=== PATIENT | female | born 1965 | race Caucasian/White ===

== ENCOUNTER 2023-05-20 18:42 | Emergency (ER) | payer MEDICAID, SELFPAY ==
[2023-05-20 19:01] VITALS: BP 119/60; PULSE 86; RESP 16; TEMP 37.2; O2SAT 96; BMI 27.3
--- NOTE | 2023-05-20 19:19 | XRR_ITS ---
PROCEDURE INFORMATION: Exam: XR Chest Exam date and time: 05/20/2023 7:34 PM Age: 57 years old Clinical indication: Pain; Chest pressure; Additional info: Chest pain TECHNIQUE: Imaging protocol: Radiologic exam of the chest. Views: 1 view. COMPARISON: No relevant prior studies available. FINDINGS: Lungs: Left lower lobe atelectasis versus minimal infiltrate. Pleural spaces: Unremarkable. No pleural effusion. No pneumothorax. Heart/Mediastinum: Unremarkable. No cardiomegaly. Bones/joints: Unremarkable. XR/XR chest 1V portable [id number] IMPRESSION: Left lower lobe atelectasis versus minimal infiltrate.
--- NOTE | 2023-05-20 19:19 | ECG_ITS ---
[facility] Test Date: 2023-05-20 Pat Name: Ivis Denney Department: Room: Gender: Female Weigher Operator: : 1965 Requested By: Delvis Mercado Order Number: [id number] Kristen MD: Rica Weir M.D. Measurements Intervals [place] Rate: 84 P: 76 AR: 142 QRS: 65 QRSD: 84 T: 60 QT: 360 QTc: 427 Interpretive Statements SINUS RHYTHM No previous ECG available for comparison Electronically Signed On 05-20-2023 22:46:58 CDT by Rica Weir M.D. [id number]
[2023-05-20 19:20] VITALS: BP 145/88; PULSE 83; RESP 26; O2SAT 97
--- NOTE | 2023-05-20 19:21 | ED_ITS ---
HPI - Chest Pain General: Chief Complaint: Chest Pain Stated Complaint: cp Time Seen by Provider: 05/20/23 19:18 History of Present Illness: 57-year-old female presents emergency department complaints of epigastric/low center chest pressure. She states she was seen at the hospital this morning in [place] and provided cardiac examination at that time it was negative. She did receive a GI cocktail and Zofran and stated she was better this morning she was discharged she currently has antiemetic prescribed Zofran as well as Carafate. She states she has continued to have pressure since she left [facility] this morning. Associated symptoms: Reports abdominal pain and nausea Review of Systems 2 General: Reports: 10 or more systems reviewed and unremarkable except in HPI and below Card: Reports: chest pain GI: Reports: abdominal pain, nausea and heartburn Physical Exam Const: COMMON NORMALS: no acute distress, patient oriented x3 and alert HENMT: COMMON NORMALS: normocephalic, atraumatic, Normal nasal mucous membranes and turbinates present and moist oral mucous membranes HEAD & SCALP: normocephalic and atraumatic NOSE: Normal nasal mucous membranes and turbinates present Eye: COMMON NORMALS: Equal, round and reactive pupils present, EOMs intact bilaterally and fundi normal bilaterally PUPIL: Yes Equal, round and reactive pupils present DIRECT OPHTHALMOSCOPY: Yes fundi normal bilaterally Neck/C-Spine: COMMON NORMALS: full ROM, no lymphadenopathy, supple and no meningeal signs Resp: COMMON NORMALS: normal respiratory effort and clear to auscultation bilaterally AUSCULTATION: clear to auscultation bilaterally Cardio: COMMON NORMALS: regular rate, regular rhythm, S1 normal heart sound p resent, S2 normal heart sound present and Peripheral pulses 2+ throughout RATE: regular rate RHYTHM: regular rhythm HEART SOUNDS: S1 normal heart sound present and S2 normal heart sound present PERIPHERAL PULSES: Peripheral pulses 2+ throughout GI: COMMON NORMALS: Normal to inspection, nondistended, normoactive bowel sounds present and non-tender : COMMON NORMALS: Yes no CVA tenderness BLADDER/KIDNEY EXAM: Yes no CVA tenderness Back/Pelvis: COMMON NORMALS: no CVA tenderness and thoracic and lumbar spine normal to inspection Extremity: COMMON NORMALS: normal to inspection, full ROM and capillary refill normal Neuro: COMMON NORMALS: patient oriented x3, CN's II-XII intact bilaterally, m oves all extremities and no sensory deficits noted SENSORIUM/ORIENTATION: Yes alert MENINGEAL SIGNS: Yes no meningeal signs Psych: COMMON NORMALS: mental status grossly normal, Normal thought process present, cooperative, normal affect, speech normal and activity/motor behavior normal SPEECH: Yes normal speech THOUGHT PROCESS: Normal thought process present Skin: COMMON NORMALS: no rashes or lesions noted and turgor normal GENERAL SKIN EXAM: no rashes or lesions noted and turgor normal Course Vital Signs: Vital signs: Vital Signs Temperature 98.9 F 05/20/23 19:01 Pulse Rate 80 05/20/23 20:38 Respiratory Rate 16 05/20/23 20:38 Blood Pressure 99/68 05/20/23 20:38 Pulse Oximetry 97 05/20/23 20:38 Oxygen Delivery Me thod Room Air 05/20/23 19:20 MDM - Chest Pain Medical Decision Making Physical exam completed and documented, I did discuss the plan of care with the patient to include cardiac evaluation twelve-lead EKG does not demonstrate any acute findings no signs of ischemia. Given the patient's description of her discomfort I suspect this is most likely esophageal spasm. She has been previously provided medications at the [facility] where she was seen earlier this morning. She does not appear to be in any acute distress at present. I did reevaluate the patient at 2009 and she stated improvement and near complete relief after receiving the sublingual nitro and her GI cocktail. We are currently awaiting the remainder of her laboratory evaluation. Medical Records I reviewed the patient's medical records. Lab Data I reviewed the patient's lab results. 05/20/23 19:15 05/20/23 19:15 Radiology Impressions Chest X-Ray 05/20/23 19:19 IMPRESSION: Left lower lobe atelectasis versus minimal infiltrate. Laboratory Results WBC 12.8 10^3/uL (4.0-10.0) H 05/20/23 19:15 RBC 5.20 10^6/uL (4.1-5.3) 05/20/23 19:15 Hgb 15.4 g/dL (11.5-15.3) H 05/20/23 19:15 Hct 45.5 % (37.0-47.0) 05/20/23 19:15 MCV 87.5 fl (81-99) 05/20/23 19:15 MCH 29.6 pg (28.0-34.0) 05/20/23 19:15 MCHC 33.8 g/dL (30.0-36.0) 05/20/23 19:15 RDW 13.0 % (12.1-15.1) 05/20/23 19:15 Plt Count 314 10^3/cmm (130-400) 05/20/23 19:15 MPV 9.4 fL (7.4-10.4) 05/20/23 19:15 Neut % (Auto) 70.5 % 05/20/23 19:15 Lymph % (Auto) 19.7 % 05/20/23 19:15 [place] % (Auto) 7.8 % 05/20/23 19:15 Eos % (Auto) 1.2 % 05/20/23 19:15 Baso % (Auto) 0.3 % 05/20/23 19:15 Neut # (Auto) 9.04 10^3/uL (1.8-7.7) H 05/20/23 19:15 Lymph # (Auto) 2.5 10^3/uL (0.8-4.8) 05/20/23 19:15 [place] # (Auto) 1.0 10^3/uL (0.2-0.9) H 05/20/23 19:15 Eos # (Auto) 0.2 10^3/uL (0.0-0.8) 05/20/23 19:15 Baso # (Auto) 0.0 10^3/uL (0.0-0.1) 05/20/23 19:15 Nucleated RBC % (auto) 0 % 05/20/23 19:15 Nucleated RBCs # 0.0 /100WBC 05/20/23 19:15 PT 13.00 SECONDS (12.1-14.9) 05/20/23 19:15 INR 0.96 (0.8-1.2) 05/20/23 19:15 APTT 30.1 SECONDS (23.9-36.7) 05/20/23 19:15 Sodium 136 mmol/L (136-145) 05/20/23 19:15 Potassium 4.4 mmol/L (3.5-5.1) 05/20/23 19:15 Chloride 98 mmol/L (98-107) 05/20/23 19:15 Carbon Dioxide 27 mmol/L (22-29) 05/20/23 19:15 Anion Gap 15.4 (5-19) 05/20/23 19:15 BUN 11 mg/dL (6-20) 05/20/23 19:15 Creatinine 0.6 mg/dL (0.5-0.9) 05/20/23 19:15 GFR Calculation 103.0 mL/min (90-130) 05/20/23 19:15 Glucose 94 mg/dL (65-115) 05/20/23 19:15 Calculated Osmolality 281 mOsm/kg (285-295) L 05/20/23 19:15 Calcium 9.3 mg/dL (8.5-10.5) 05/20/23 19:15 Total Bilirubin 0.6 mg/dL (0.15-1.2) 05/20/23 19:15 AST 17 U/L (0-32) 05/20/23 19:15 ALT 14 U/L (0-33) 05/20/23 19:15 Alkaline Phosphatase 128 U/L (35-105) H 05/20/23 19:15 Troponin T Baseline 6 ng/L (0-10) 05/20/23 19:15 Troponin T 120 Minute 6.00 ng/L (0-10) 05/20/23 20:21 Delta Troponin T 0 ABS# (0-10) 05/20/23 20:21 NT-Pro-B Natriuret Pep 36 pg/mL (0-125) 05/20/23 19:15 Total Protein 7.6 g/dL (6.6-8.7) 05/20/23 19:15 Albumin 4.5 g/dL (3.5-5.2) 05/20/23 19:15 Globulin 3.1 g/dL (1.3-4.6) 05/20/23 19:15 EKG Data EKG 1: I personally reviewed and interpreted this EKG as follows: Interpretation: Twelve-lead EKG obtained at 1859 and reviewed. Normal sinus rhythm, ventricular rate of 84, [place] interval 142, QRS duration 84, QT 360 QTc 401. There is no ST elevation or depression to indicate acute ischemia. Discharge Plan Discharge Patient Disposition: Home Clinical Impression: Diffuse esophageal spasm, Atypical chest pain Condition: Stable Discharge Orders: Discharge ED (Routine); Ordered 05/20/23 Ordered By: Delvis Mercado Patient Instructions: Opioid Safety, Pain Management Coding Level of Care Code ED Cigarette Stamper for Harjit Nugent
[2023-05-20 19:28] LABS: Basophils % 0.3 %; Eosinophils # 0.2 10^3/uL (0.0-0.8); Eosinophils % 1.2 %; Hematocrit 45.5 % (37.0-47.0); Hemoglobin 15.4 g/dL (11.5-15.3); Lymphocytes # 2.5 10^3/uL (0.8-4.8); Lymphocytes % 19.7 %; Mean Corpuscular HGB Conc 33.8 g/dL (30.0-36.0); Mean Corpuscular Hemoglobin 29.6 pg (28.0-34.0); Mean Corpuscular Volume 87.5 fl (81-99); Mean Platelet Volume 9.4 fL (7.4-10.4); Monocytes % 7.8 %; Neutrophils # 9.04 10^3/uL (1.8-7.7); Neutrophils % 70.5 %; Nucleated Red Blood Cells % 0 %; Platelet Count 314 10^3/cmm (130-400); White Blood Count 12.8 10^3/uL (4.0-10.0)
[2023-05-20] MEDS: nitroglycerin 0.4 mg sublingual Tablet SUBLINGUAL (19:29)
[2023-05-20] MEDS: aspirin 81 mg Chew Tablet 324 MG PO (19:30)
[2023-05-20] MEDS: aluminum-mag hydrox-simethicon 30 ML, sucralfate oral liq 1 GM PO (19:30)
[2023-05-20 19:33] LABS: INR 0.96 (0.8-1.2)
[2023-05-20 19:35] LABS: Partial Thromboplastin Time 30.1 SECONDS (23.9-36.7)
[2023-05-20 19:49] LABS: Alanine Aminotransferase 14 U/L (0-33); Albumin Level 4.5 g/dL (3.5-5.2); Alkaline Phosphatase 128 U/L (35-105); Anion Gap 15.4 (5-19); Aspartate Amino Transferase 17 U/L (0-32); Blood Urea Nitrogen 11 mg/dL (6-20); Calcium 9.3 mg/dL (8.5-10.5); Carbon Dioxide 27 mmol/L (22-29); Chloride 98 mmol/L (98-107); Globulin 3.1 g/dL (1.3-4.6); Glucose 94 mg/dL (65-115); NT Pro B Type Natriuretic Pept 36 pg/mL (0-125); Osmolality Calculated 281 mOsm/kg (285-295); Potassium 4.4 mmol/L (3.5-5.1); Sodium 136 mmol/L (136-145); Total Bilirubin 0.6 mg/dL (0.15-1.2); Total Protein 7.6 g/dL (6.6-8.7)
[2023-05-20 19:51] LABS: Troponin(5th) Baseline 6 ng/L (0-10)
[2023-05-20 20:15] VITALS: BP 121/70; PULSE 80; RESP 16; O2SAT 97
[2023-05-20 20:38] VITALS: BP 99/68; PULSE 80; RESP 16; O2SAT 97
[2023-05-20 20:58] LABS: Troponin 5 2HR Delta 0 ABS# (0-10)
--- NOTE | 2023-05-20 21:05 | ECG_ITS ---
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 Measurements Intervals [place] Rate: 79 P: 29 OR: 144 QRS: 35 QRSD: 89 T: 31 QT: 367 QTc: 422 Interpretive Statements SINUS RHYTHM Compared to ECG 05/20/2023 18:59:26 No significant changes Electronically Signed On 05-20-2023 22:51:20 CDT by Rica Weir M.D. [id number]
[2023-05-20 21:29] VITALS: BP 99/68; PULSE 80; RESP 16; TEMP 37.2; O2SAT 97
--- NOTE | 2023-05-24 11:10 | DCPLANNER ---
poker manager called patient due to no primary care physician - patient stated that she goes to the [facility]
== END 2023-05-20 21:32 | disposition home or self-care (01) ==
PROVIDERS: Emergency Provider Internal Medicine
DX: R07.89 Other chest pain (principal); K22.4 Dyskinesia of esophagus
CPT/HCPCS: 71045; 80053; 83880; 84484; 85025; 85610; 85730; 93005; 99285

== ENCOUNTER 2023-12-26 14:45 | Emergency (ER) | payer MEDICAID, SELFPAY ==
[2023-12-26 14:50] VITALS: BP 128/78; PULSE 77; RESP 18; TEMP 36.6; O2SAT 95
--- NOTE | 2023-12-26 15:29 | CTR_ITS ---
PROCEDURE INFORMATION: Exam: CT Abdomen And Pelvis With Contrast Exam date and time: 12/26/2023 4:25 PM Age: 58 years old Clinical indication: Nausea and vomiting; Abdominal pain; Generalized; Prior surgery; Surgery date: 6+ months; Surgery type: Hyst, marquise TECHNIQUE: Imaging protocol: Computed tomography of the abdomen and pelvis with contrast. Radiation optimization: All CT scans at this facility use at least one of these dose optimization techniques: automated exposure control; mA and/or kV adjustment per patient size (includes targeted exams where dose is matched to clinical indication); or iterative reconstruction. Contrast material: OMNI 350; Contrast volume: 100 ml; Contrast route: INTRAVENOUS (IV); COMPARISON: CR XR chest 1V portable [id number] 05/20/2023 7:34 PM RADIATION DOSE METRICS: Total DLP (mGy-cm): 708.79 FINDINGS: Lungs: Subsegmental bibasilar atelectasis. The visualized lung bases are otherwise grossly clear. Diaphragm: No evidence of diaphragmatic defect. Liver: Hepatic steatosis. No evidence of focal hepatic lesion. Gallbladder and bile ducts: Status post cholecystectomy. Mild central intrahepatic biliary dilatation. There is mild extrahepatic biliary dilatation, frequently seen post cholecystectomy. CBD measures up to 13 mm. No evidence of intraductal stone. Pancreas: Unremarkable. Spleen: Unremarkable. Adrenal glands: Unremarkable. Kidneys and ureters: There are simple appearing left-sided renal cysts for which dedicated imaging follow-up is not required. Mild left renal parenchymal scarring. Nonobstructive 2 mm left-sided renal stone. Otherwise no evidence of renal parenchymal abnormality. No hydronephrosis or ureteral stone. Stomach and bowel: No evidence of bowel obstruction or perienteric inflammatory changes. Appendix: Normal appendix. Intraperitoneal space: No evidence of free air or fluid collection. Vasculature: Moderate aortobiiliac atherosclerosis without aneurysmal dilatation or dissection. The celiac trunk, SMA and MARII are grossly patent. 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 No evidence of IVC thrombus. The portal vein, SMV and splenic veins are grossly patent. Lymph nodes: No adenopathy. Urinary bladder: Grossly unremarkable. Reproductive: Status post hysterectomy. Bones/joints: No evidence of acute fracture or aggressive osseous lesion. Soft tissues: No evidence of fluid collection or hematoma in the superficial soft tissues. CT/CT abdomen pelvis w con* [id number] IMPRESSION: 1. No evidence of acute abnormality in the abdomen or pelvis.
--- NOTE | 2023-12-26 15:29 | ED_ITS ---
HPI - Nausea/Vomiting/Diarrhea 2 General: Chief complaint: Nausea/Vomiting/Diarrhea Stated complaint: weak, n,v,d Time Seen by Provider: 12/26/23 15:20 Source: patient Mode of arrival: ambulatory Limitations: no limitations History of Present Illness: 58-year-old female states that she has b een having nausea and vomiting along with diffuse abdominal cramping has been going on for 6 to 7 weeks. She states she has seen her PCP and was given Zofran and she is really had no improvement. States seems to be worse in the morning and with eating. She denies any fevers denies any blood in her stool she has had a hysterectomy along with a cholecystectomy in the past Associated nausea: Yes Associated symtoms: Reports nausea; Denies chest pain or headache(s) Review of Systems 2 Const: Denies: fever(s), chills, body aches or change in appetite ENMT: Denies: throat pain or dental pain Card: Denies: chest pain Resp: Denies: dyspnea GI: Reports: abdominal pain, nausea and vomiting; Denies: diarrhea Musc: Denies: neck pain or back pain Skin/Breast: Denies: rash Neuro: Denies: headache(s) Physical Exam 2 Const: COMMON NORMALS: no acute distress, patient oriented x3 and healthy appearing HENMT: COMMON NORMALS: normocephalic and atraumatic HEAD & SCALP: n ormocephalic and atraumatic Neck/C-Spine: COMMON NORMALS: full ROM and supple Chest: COMMONS NORMALS: normal inspection of the chest Resp: COMMON NORMALS: normal respiratory effort, No retractions, No use of accessory muscles and clear to auscultation bilaterally AUSCULTATION: clear to auscultation bilaterally Cardio: COMMON NORMALS: regular rate, regular rhythm and No murmurs present (Cardio) RATE: regular rate RHYTHM: regular rhythm GI: COMMON NORMALS: Normal to inspection, nondistended, normoactive bowel sounds present, Soft to palpation, non-tender and no masses PALPATION: Yes Soft to palpation Extremity: COMMON NORMALS: normal to inspection and full ROM Neuro: COMMON NORMALS: patient oriented x3, moves all extremities and no focal motor deficits Psych: COMMON NORMALS: mental status grossly normal, Normal thought process present and cooperative THOUGHT PROCESS: Normal thought process present Skin: COMMON NORMALS: no rashes or lesions noted and no wounds GENERAL SKIN EXAM: no rashes or lesions noted Course 2 Vital Signs: Vital signs: Vital Signs Temperature 97.9 F 12/26/23 14:50 Pulse Rate 62 12/26/23 16:20 Respiratory Rate 18 12/26/23 16:20 Blood Pressure 133/78 12/26/23 16:20 Pulse Oximetry 97 12/26/23 16:20 MDM - Nausea/Vomiting/Diarrhea Medical Decision Making Patient presents here with vomiting is been going on for months she also found to have a acute UTI here blood work and CT otherwise normal we will place her on Keflex we will get her general surgery follow-up for her chronic vomiting she is well-appearing here otherwise and stable for discharge return if worsening. Medical Records I reviewed the patient's medical records. Lab Data I reviewed the patient's lab results. 12/26/23 15:28 12/26/23 15:28 Radiology Impressions Abdomen/Pelvis CT 12/26/23 15:29 IMPRESSION: 1. No evidence of acute abnormality in the abdomen or pelvis. Laboratory Results WBC 8.74 10^3/uL (3.29-11.43) 12/26/23 15:28 RBC 4.71 10^6/uL (3.85-5.65) 12/26/23 15:28 Hgb 14.60 g/dL (11.27-16.99) 12/26/23 15:28 Hct 43.2 % (36-47) 12/26/23 15:28 MCV 91.7 fl (85-98) 12/26/23 15:28 MCH 31.0 pg (27-33) 12/26/23 15:28 MCHC 33.8 g/dL (30-55) 12/26/23 15:28 RDW 12.6 % (12.1-15.1) 12/26/23 15:28 Plt Count 317 10^3/cmm (157-399) 12/26/23 15:28 MPV 9.5 fL (7.4-10.4) 12/26/23 15:28 Neut % (Auto) 55.5 % 12/26/23 15:28 Lymph % (Auto) 33.8 % 12/26/23 15:28 [place] % (Auto) 8.0 % 12/26/23 15:28 Eos % (Auto) 1.9 % 12/26/23 15:28 Baso % (Auto) 0.5 % 12/26/23 15:28 Neut # (Auto) 4.85 10^3/uL (1.8-7.7) 12/26/23 15:28 Lymph # (Auto) 3.0 10^3/uL (0.8-4.8) 12/26/23 15:28 [place] # (Auto) 0.7 10^3/uL (0.2-0.9) 12/26/23 15:28 Eos # (Auto) 0.2 10^3/uL (0.0-0.8) 12/26/23 15:28 Baso # (Auto) 0.0 10^3/uL (0.0-0.1) 12/26/23 15:28 Nucleated RBC % (auto) 0 % 12/26/23 15: Nucleated RBCs # 0.0 /100WBC 12/26/23 15:28 Sodium 139 mmol/L (136-145) 12/26/23 15: Potassium 4.0 mmol/L (3.5-5.1) 12/26/23 15: Chloride 99 mmol/L (98-107) 12/26/23 15:28 Carbon Dioxide 27 mmol/L (22-29) 12/26/23 15:28 Anion Gap 17.0 (5-19) 12/26/23 15:28 BUN 8 mg/dL (6-20) 12/26/23 15:28 Creatinine 0.7 mg/dL (0.5-0.9) 12/26/23 15:28 GFR Calculation 85.9 mL/min (90-130) L 12/26/23 15:28 Glucose 100 mg/dL (65-115) 12/26/23 15:28 Calculated Osmolality 286 mOsm/kg (285-295) 12/26/23 15:28 Calcium 10.2 mg/dL (8.5-10.5) 12/26/23 15:28 Total Bilirubin 0.4 mg/dL (0.15-1.2) 12/26/23 15:28 AST 15 U/L (0-32) 12/26/23 15:28 ALT 14 U/L (0-33) 12/26/23 15:28 Alkaline Phosphatase 106 U/L (35-105) H 12/26/23 15:28 Total Protein 7.6 g/dL (6.6-8.7) 12/26/23 15:28 Albumin 4.2 g/dL (3.5-5.2) 12/26/23 15:28 Globulin 3.4 g/dL (1.3-4.6) 12/26/23 15:28 Lipase 40 U/L (13-60) 12/26/23 15:28 Urine Color Yellow (Yellow) 12/26/23 15:59 Urine Appearance Hazy (CLEAR) A 12/26/23 15:59 Urine pH 7 (5-7) 12/26/23 15:59 Ur Specific [place] 1.015 (1.005-1.030) 12/26/23 15:59 Urine Protein Neg (Negative) 12/26/23 15:59 Urine Glucose (UA) Norm (Normal) 12/26/23 15:59 Urine Ketones Negative (Negative) 12/26/23 15:59 Urine Blood 2+ (Negative) H 12/26/23 15:59 Urine Nitrate Positive (Negative) H 12/26/23 15:59 Urine Bilirubin Neg (Negative) 12/26/23 15:59 Urine Urobilinogen Norm mg/dL (Negative) 12/26/23 15:59 Ur Leukocyte Esterase Negative (Negative) 12/26/23 15:59 Urine RBC None /hpf (0-2) 12/26/23 15:59 Urine WBC 0-4 /hpf (0-5) H 12/26/23 15:59 Ur Squamous Epith Cells 0-4 /hpf (0-5) H 12/26/23 15:59 Amorphous Sediment 1+ /hpf 12/26/23 15:59 Urine Bacteria 2+ /hpf (NONE) H 12/26/23 15:59 Urine Mucus None /hpf 12/26/23 15:59 All radiology interpretation(s) finalized by discharge Discharge Plan Discharge Patient Disposition: Home Clinical Impression: Acute cystitis, Vomiting Condition: Stable Prescriptions: New cephalexin 500 mg capsule 500 mg PO TID 7 Days Qty: 21 0RF Discharge Orders: Discharge ED (Routine); Ordered 12/26/23 Ordered By: Denny Mckeon Referrals: Brayden Walsh DO [Physician] - 1-3 days Discharge Diet: Advance as tolerated Discharge Activity: Resume usual activity Patient Instructions: Urinary Tract Infection in Women (ED), Acute Nausea and Vomiting (ED) Coding Level of Care Code ED Scoop Filler for Harjit Nugent
[2023-12-26] MEDS: ondansetron 2 mg/ML SDV 2 mL 4 MG IVP (16:15)
[2023-12-26] MEDS: sodium chloride 0.9% 1,000 ML 999 ML IV (16:15)
[2023-12-26 16:19] LABS: Basophils % 0.5 %; Eosinophils # 0.2 10^3/uL (0.0-0.8); Eosinophils % 1.9 %; Hematocrit 43.2 % (36-47); Lymphocytes % 33.8 %; Mean Corpuscular HGB Conc 33.8 g/dL (30-55); Mean Corpuscular Volume 91.7 fl (85-98); Mean Platelet Volume 9.5 fL (7.4-10.4); Monocytes # 0.7 10^3/uL (0.2-0.9); Neutrophils # 4.85 10^3/uL (1.8-7.7); Neutrophils % 55.5 %; Nucleated Red Blood Cells % 0 %; Platelet Count 317 10^3/cmm (157-399); Red Blood Count 4.71 10^6/uL (3.85-5.65); Red Cell Distribution Width 12.6 % (12.1-15.1); White Blood Count 8.74 10^3/uL (3.29-11.43)
[2023-12-26 16:20] VITALS: BP 133/78; PULSE 62; RESP 18; O2SAT 97
[2023-12-26] MEDS: iohexol 350 mg/mL 500 mL Btl (per mL) IV (16:25)
[2023-12-26 16:27] LABS: Add Urine Microscopic? YES; Bilirubin Urine Neg (Negative); Blood Urine 2+ (Negative); Glucose Urine UA Norm (Normal); Ketones Urine Negative (Negative); Leukocyte Esterase Urine Negative (Negative); Nitrate Urine Positive (Negative); Protein Urine Neg (Negative); Specific Gravity, Urine 1.015 (1.005-1.030); Urine Appearance Hazy (CLEAR); Urine Color Yellow (Yellow); Urobilinogen Urine Norm (Negative); pH Urine 7 (5-7)
[2023-12-26 16:30] LABS: Add Urine Culture? Yes; Amorphous Sediment Urine 1+ /hpf; Bacteria Urine 2+ /hpf; Squamous Epithelial Cell Urine 0-4 /hpf (0-5); WBC Urine 0-4 /hpf (0-5)
[2023-12-26 16:39] LABS: Alanine Aminotransferase 14 U/L (0-33); Albumin Level 4.2 g/dL (3.5-5.2); Alkaline Phosphatase 106 U/L (35-105); Aspartate Amino Transferase 15 U/L (0-32); Blood Urea Nitrogen 8 mg/dL (6-20); Calcium 10.2 mg/dL (8.5-10.5); Carbon Dioxide 27 mmol/L (22-29); Chloride 99 mmol/L (98-107); Creatinine Clr Calc Pharmacy 74.8899; Globulin 3.4 g/dL (1.3-4.6); Glomerular Filtration Rate 85.9 mL/min (90-130); Glucose 100 mg/dL (65-115); Lipase 40 U/L (13-60); Osmolality Calculated 286 mOsm/kg (285-295); Sodium 139 mmol/L (136-145); Total Bilirubin 0.4 mg/dL (0.15-1.2); Total Protein 7.6 g/dL (6.6-8.7)
[2023-12-26] MEDS: cefTRIAXone 1,000 MG in sodium chloride 0.9% (plus) 50 ML 100 MG IV (16:47)
[2023-12-26 17:23] VITALS: BP 137/83; PULSE 63; O2SAT 96
--- NOTE | 2023-12-27 00:56 | DCPLANNER ---
Message sent to General surgery for acute nausea vomiting
== END 2023-12-26 17:24 | disposition home or self-care (01) ==
PROVIDERS: Emergency Provider Emergency Medicine
DX: N30.00 Acute cystitis without hematuria (principal); R11.11 Vomiting without nausea
CPT/HCPCS: 36415; 74177; 80053; 81001; 83690; 85025; 87086; 96365; 96375; 99285; J0696; J2405; J7030; Q9967

== ENCOUNTER 2025-03-28 10:33 | Emergency (ER) | payer MEDICAID, SELFPAY ==
[2025-03-28 11:12] VITALS: BP 103/73; PULSE 82; RESP 18; TEMP 36.7; O2SAT 95; BMI 28.0
--- NOTE | 2025-03-28 11:25 | ED_ITS ---
HPI - Abdominal Pain 2 General: Chief Complaint: Abdominal Pain Stated Complaint: low abd pain Time Seen by Provider: 03/28/25 11:22 Source: patient Mode of arrival: ambulatory Limitations: no limitations History of Present Illness: 59-year-old female states she has had ch ronic abdominal pain it has been going on for 2 years. States she is seen multiple physicians are not able to figure it out states that she is having pain today with vomiting states her pain is diffuse in nature rates an 8 out of 10 denies any fevers denies any worse improved factors Associated Symptoms: Reports nausea and vomiting; Denies chills, diarrhea and fever(s) Related Data Previous Rx's ?Medication ?Instructions ?Recorded metoclopramide HCl 10 mg tablet 10 mg PO Q6H PRN nause a and 03/28/25 (Reglan) vomiting #20 tabs Allergies Allergy/AdvReac Type Severity Reaction Status Date / Time latex Allergy ALGY-Rash Verified 03/28/25 11:10 oxycodone (From Percocet) Allergy ADR-Halluci Verified 03/28/25 11:10 nating Review of Systems 2 Const: Denies: fever(s), chills, body aches or change in appetite ENMT: Denies: throat pain or dental pain Card: Denies: chest pain Resp: Denies: dyspnea GI: Reports: abdominal pain, nausea and vomiting; Denies: diarrhea Musc: Denies: neck pain or back pain Skin/Breast: Denies: rash Neuro: Denies: headache(s) Physical Exam 2 Const: COMMON NORMALS: no acute distress, patient oriented x3 and healthy appearing HENMT: COMMON NORMALS: normocephalic and atraumatic HEAD & SCALP: n ormocephalic and atraumatic Neck/C-Spine: COMMON NORMALS: full ROM and supple Chest: COMMONS NORMALS: normal inspection of the chest Resp: COMMON NORMALS: normal respiratory effort Cardio: COMMON NORMALS: regular rate RATE: regular rate GI: COMMON NORMALS: Normal to inspection, nondistended, normoactive bowel sounds present, Soft to palpation and no masses PALPATION: Yes Soft to palpation OTHER: diffuse mild tenderness Extremity: COMMON NORMALS: normal to inspection and full ROM Neuro: COMMON NORMALS: patient oriented x3, moves all extremities and no focal motor deficits Psych: COMMON NORMALS: mental status grossly normal, Normal thought process present and cooperative THOUGHT PROCESS: Normal thought process present Skin: COMMON NORMALS: no rashes or lesions noted and no wounds GENERAL SKIN EXAM: no rashes or lesions noted Course 2 Vital Signs: Vital signs: Vital Signs Temperature 98.0 F 03/28/25 11:12 Pulse Rate 80 03/28/25 11:57 Respiratory Rate 18 03/28/25 11:12 Blood Pressure 105/67 03/28/25 11:57 Pulse Oximetry 95 03/28/25 11:57 Oxygen Delivery Me thod Room Air 03/28/25 11:57 MDM - Abdominal Pain Medical Decision Making Patient presents here with abdominal pain has been chronic in nature she is well-appearing here her pain is much improved after Reglan white counts normal no signs of acute surgical abdomen we will place her on Reglan for home she is follow-up with PCP return if worsening. Medical Records I reviewed the patient's medical records. Lab Data I reviewed the patient's lab results. 03/28/25 11:47 03/28/25 11:47 Labs/Radiology: Laboratory Results WBC 8.58 10^3/uL (3.29-11.43) 03/28/25 11:47 RBC 5.27 10^6/uL (3.85-5.65) 03/28/25 11:47 Hgb 16.40 g/dL (11.27-16.99) 03/28/25 11:47 Hct 46.1 % (36-47) 03/28/25 11:47 MCV 87.5 fl (85-98) 03/28/25 11:47 MCH 31.1 pg (27-33) 03/28/25 11:47 MCHC 35.6 g/dL (30-55) 03/28/25 11:47 RDW 11.9 % (12.1-15.1) L 03/28/25 11:47 Plt Count 324 10^3/cmm (157-399) 03/28/25 11:47 MPV 9.2 fL (7.4-10.4) 03/28/25 11:47 Neut % (Auto) 52.8 % 03/28/25 11:47 Lymph % (Auto) 37.3 % 03/28/25 11:47 [place] % (Auto) 7.2 % 03/28/25 11:47 Eos % (Auto) 1.9 % 03/28/25 11:47 Baso % (Auto) 0.6 % 03/28/25 11:47 Neut # (Auto) 4.53 10^3/uL (1.8-7.7) 03/28/25 11:47 Lymph # (Auto) 3.2 10^3/uL (0.8-4.8) 03/28/25 11:47 [place] # (Auto) 0.6 10^3/uL (0.2-0.9) 03/28/25 11:47 Eos # (Auto) 0.2 10^3/uL (0.0-0.8) 03/28/25 11:47 Baso # (Auto) 0.1 10^3/uL (0.0-0.1) 03/28/25 11:47 Nucleated RBC % (auto) 0 % 03/28/25 11:47 Nucleated RBCs # 0.0 /100WBC 03/28/25 11:47 Sodium 132 mmol/L (136-145) L 03/28/25 11:47 Potassium 4.4 mmol/L (3.5-5.1) 03/28/25 11:47 Chloride 96 mmol/L (98-107) L 03/28/25 11:47 Carbon Dioxide 23 mmol/L (22-29) 03/28/25 11:47 Anion Gap 17.4 (5-19) 03/28/25 11:47 BUN 17 mg/dL (6-20) 03/28/25 11:47 Creatinine 0.9 mg/dL (0.5-0.9) 03/28/25 11:47 GFR Calculation 64.1 mL/min (90-130) L 03/28/25 11:47 Glucose 98 mg/dL (65-115) 03/28/25 11:47 Calculated Osmolality 276 mOsm/kg (285-295) L 03/28/25 11:47 Calcium 10.0 mg/dL (8.5-10.5) 03/28/25 11:47 Total Bilirubin 0.7 mg/dL (0.15-1.2) 03/28/25 11:47 AST 17 U/L (0-32) 03/28/25 11:47 ALT 13 U/L (0-33) 03/28/25 11:47 Alkaline Phosphatase 105 U/L (35-105) 03/28/25 11:47 Total Protein 8.6 g/dL (6.6-8.7) 03/28/25 11:47 Albumin 4.8 g/dL (3.5-5.2) 03/28/25 11:47 Globulin 3.8 g/dL (1.3-4.6) 03/28/25 11:47 Lipase 33 U/L (13-60) 03/28/25 11:47 Urine Color Yellow (Yellow) 03/28/25 11:22 Urine Appearance Clear (CLEAR) 03/28/25 11:22 Urine pH 6.0 (5-7) 03/28/25 11:22 Ur Specific [place] 1.016 (1.005-1.030) 03/28/25 11:22 Urine Protein Negative (Negative) 03/28/25 11:22 Urine Glucose (UA) Negative (Normal) 03/28/25 11:22 Urine Ketones Negative (Negative) 03/28/25 11:22 Urine Blood Negative (Negative) 03/28/25 11:22 Urine Nitrate Negative (Negative) 03/28/25 11:22 Urine Bilirubin Negative (Negative) 03/28/25 11:22 Urine Urobilinogen 1.0 mg/dL (Negative) 03/28/25 11:22 Ur Leukocyte Esterase Negative (Negative) 03/28/25 11:22 Urine RBC 0-2 /hpf (0-2) 03/28/25 11:22 Urine WBC 0-5 /hpf (0-5) 03/28/25 11:22 Ur Squamous Epith Cells 0-5 /hpf (0-5) 03/28/25 11:22 Amorphous Sediment Not Reportable 03/28/25 11:22 Urine Bacteria None seen /hpf (NONE) 03/28/25 11:22 Hyaline Casts 1.21 /lpf 03/28/25 11:22 All radiology interpretation(s) finalized by discharge Discharge Plan Discharge Patient Disposition: Home Clinical Impression: Abdominal pain Condition: Stable Prescriptions: New metoclopramide HCl [Reglan] 10 mg tablet 10 mg PO Q6H PRN (Reason: nausea and vomiting) Qty: 20 0RF Discharge Orders: Discharge ED (Routine); Ordered 03/28/25 Ordered By: Denny Mckeon Referrals: Telly Antoine MD [Primary Care Provider] - 4-7 days Discharge Diet: Advance as tolerated Discharge Activity: Resume usual activity Patient Instructions: Abdominal Pain (ED) Print Language: Tongan Coding Level of Care Code ED Wall And Floor Tiler for Harjit Nugent
[2025-03-28 11:36] LABS: Bilirubin Urine Negative (Negative); Blood Urine Negative (Negative); Glucose Urine UA Negative (Normal); Ketones Urine Negative (Negative); Leukocyte Esterase Urine Negative (Negative); Nitrate Urine Negative (Negative); Protein Urine Negative (Negative); Specific Gravity, Urine 1.016 (1.005-1.030); Urine Appearance Clear (CLEAR); Urine Color Yellow (Yellow)
[2025-03-28 11:38] LABS: Add Urine Microscopic? YES; Bacteria Urine None Seen /hpf; Hyaline Casts Urine 1.21 /lpf; RBC Urine 0-2 /hpf (0-2); Squamous Epithelial Cell Urine 0-5 /hpf (0-5); WBC Urine 0-5 /hpf (0-5)
[2025-03-28] MEDS: diphenhydrAMINE 50 mg/mL SDV 1mL 25 MG IVP (11:49)
[2025-03-28] MEDS: metoclopramide 5 mg/mL SDV 2 mL IVP (11:50)
[2025-03-28] MEDS: morphine 4 mg/mL SDV 1 mL IVP (11:50)
[2025-03-28 11:52] LABS: Basophils # 0.1 10^3/uL (0.0-0.1); Basophils % 0.6 %; Eosinophils # 0.2 10^3/uL (0.0-0.8); Eosinophils % 1.9 %; Hematocrit 46.1 % (36-47); Lymphocytes # 3.2 10^3/uL (0.8-4.8); Lymphocytes % 37.3 %; Mean Corpuscular HGB Conc 35.6 g/dL (30-55); Mean Corpuscular Hemoglobin 31.1 pg (27-33); Mean Corpuscular Volume 87.5 fl (85-98); Mean Platelet Volume 9.2 fL (7.4-10.4); Monocytes # 0.6 10^3/uL (0.2-0.9); Monocytes % 7.2 %; Neutrophils # 4.53 10^3/uL (1.8-7.7); Neutrophils % 52.8 %; Nucleated Red Blood Cells % 0 %; Platelet Count 324 10^3/cmm (157-399); Red Blood Count 5.27 10^6/uL (3.85-5.65); Red Cell Distribution Width 11.9 % (12.1-15.1); White Blood Count 8.58 10^3/uL (3.29-11.43)
[2025-03-28 11:57] VITALS: BP 105/67; PULSE 80; O2SAT 95
[2025-03-28 12:09] LABS: Alanine Aminotransferase 13 U/L (0-33); Albumin Level 4.8 g/dL (3.5-5.2); Alkaline Phosphatase 105 U/L (35-105); Anion Gap 17.4 (5-19); Aspartate Amino Transferase 17 U/L (0-32); Blood Urea Nitrogen 17 mg/dL (6-20); Carbon Dioxide 23 mmol/L (22-29); Chloride 96 mmol/L (98-107); Creatinine Clr Calc Pharmacy 66.9896; Globulin 3.8 g/dL (1.3-4.6); Glomerular Filtration Rate 64.1 mL/min (90-130); Glucose 98 mg/dL (65-115); Lipase 33 U/L (13-60); Osmolality Calculated 276 mOsm/kg (285-295); Potassium 4.4 mmol/L (3.5-5.1); Sodium 132 mmol/L (136-145); Total Bilirubin 0.7 mg/dL (0.15-1.2); Total Protein 8.6 g/dL (6.6-8.7)
[2025-03-28 13:01] VITALS: BP 112/74; PULSE 80; O2SAT 96
== END 2025-03-28 13:09 | disposition home or self-care (01) ==
PROVIDERS: Emergency Provider Emergency Medicine; PCP Family Medicine
DX: R10.9 Unspecified abdominal pain (principal)
CPT/HCPCS: 36415; 80053; 81001; 83690; 85025; 96374; 96375; 99284; J1200; J2270; J2765